=== PATIENT | male | born 1965 | race Caucasian/White ===

== ENCOUNTER → 2016-08-28 | Day surgery (SDC) | payer OTHER ==
[2016-08-28 07:51] LABS: HCT 46.4 % (42.0-52.0); HGB 15.9 g/dl (13.2-18.0); MCH 30.5 pg (25.0-31.0); MCHC 34.3 g/dL (32.0-36.0); MCV 88.9 fL (78.0-100.0); RBC 5.22 M/uL (4.70-6.00); RDW 12.9 % (11.5-14.0); WBC 6.7 K/uL (4.0-10.5)
[2016-08-28 08:06] LABS: ALBUMIN 4.7 g/dL (3.5-5.0); BILIRUBIN - TOTAL 0.9 mg/dL (0.1-1.0); GLOBULIN (CALCULATION) 2.4 g/dL (2.2-4.2); POTASSIUM 3.5 mmol/L (3.5-5.1); TOTAL PROTEIN 7.1 g/dL (6.4-8.3)
== END | disposition home or self-care (01) ==
LOC: FAS 07:40
PROVIDERS: Surgery
DX: Z12.11 Encounter for screening for malignant neoplasm of colon (principal); K21.9 Gastro-esophageal reflux disease without esophagitis; F17.210 Nicotine dependence, cigarettes, uncomplicated; I10 Essential (primary) hypertension; Z90.89 Acquired absence of other organs; Z98.890 Other specified postprocedural states; Z82.49 Family history of ischemic heart disease and other diseases of the circulatory system
CPT/HCPCS: 36415; 80053; J2704

== ENCOUNTER 2020-07-10 22:30 | Emergency (ER) | payer OTHER ==
[~2020-07-10 22:30] MED LIST: COZAAR50 MG PO; HCTZ12.5 MG PO; LIPITOR20 M1 PO; NORCO 5-325 TA1 EACH PO; NORVASC5 MG PO; PROTONIX 40MG T40 MG PO; SILDENAFIL20 MG PO; ZOFRAN4 MG PO; ZYRTEC10 M3 PO
[2020-07-10 23:43] LABS: BASOPHIL 0.3 % (0-2); HCT 44.7 % (42.0-52.0); LYMPHOCYTE 27.1 % (15-48); MCH 30.5 pg (25.0-31.0); MCHC 33.6 g/dL (32.0-36.0); MONOCYTE 7.1 % (0-12); MPV 9.9 fL (6.0-9.5); NEUTROPHIL 63.2 % (41-80); NRBC 0; PLT 311 K/uL (150-400); RBC 4.91 M/uL (4.70-6.00); RDW 12.2 % (11.5-14.0)
[2020-07-10 23:58] LABS: CREATININE 0.87 mg/dL (0.67-1.17); POTASSIUM 3.8 mmol/L (3.5-5.1)
== END 2020-07-11 00:30 | disposition home or self-care (01) ==
LOC: FER 22:30
PROVIDERS: Emergency Medicine
DX: F41.9 Anxiety disorder, unspecified (principal); I10 Essential (primary) hypertension; F17.210 Nicotine dependence, cigarettes, uncomplicated; Z85.820 Personal history of malignant melanoma of skin; Z89.022 Acquired absence of left finger(s); Z79.899 Other long term (current) drug therapy; Z86.16 Personal history of COVID-19
CPT/HCPCS: 36415; 71045; 80048; 85025; 93005